=== PATIENT | male | born 1970 | race Caucasian/White ===

== ENCOUNTER → 2024-09-03 | Outpatient (CLI) | payer BC, SELFPAY ==
[2024-09-03 18:22] LABS: Urea Breath Test Negative (Negative)
== END | disposition home or self-care (01) ==
LOC: SLAB 15:49
PROVIDERS: PCP Student in an Organized Health Care Education/Training Program; Referring Provider Student in an Organized Health Care Education/Training Program; Visit Provider Student in an Organized Health Care Education/Training Program
DX: K21.00 Gastro-esophageal reflux disease with esophagitis, without bleeding (principal)
CPT/HCPCS: 83013; 83014